=== PATIENT | male | born 1990 | race Caucasian/White ===

== ENCOUNTER 2021-01-12 13:56 | Emergency (ER) | payer OTHER ==
[~2021-01-12] VITALS: Ht 182.9 cm; Wt 90.7 kg
[2021-01-12 14:05] VITALS: BP 130/79
--- NOTE | 2021-01-12 16:13 | NUR ---
Patient discharged to home in stable condition. Written and verbal after care instructions given. Patient verbalizes understanding of instruction. Pt ambulatory with a steady gait
== END 2021-01-12 16:14 | disposition home or self-care (01) ==
LOC: ER 14:00
DX: R21 Rash and other nonspecific skin eruption (principal); F17.200 Nicotine dependence, unspecified, uncomplicated; M25.572 Pain in left ankle and joints of left foot; R22.42 Localized swelling, mass and lump, left lower limb